=== PATIENT | male | born 1985 | race Caucasian/White ===

== ENCOUNTER → 2020-11-16 | Outpatient (CLI) | payer OTHER ==
[~2020-11-16] MED LIST: LISI20TA PO; OMEP20CA12 PO; OXYC500S2 PO
--- NOTE | 2020-11-16 10:56 | Diagnostic Imaging Report ---
EXAM: CT abdomen and pelvis without intravenous contrast. All CT scans use one or more of the following dose optimizing techniques: automated exposure control, MA and/or KvP adjustment based on patient size and exam type or iterative reconstruction. CLINICAL HISTORY: Right lower quadrant pain EXAM DATE/TIME: 11/16/2020 COMPARISON: None FINDINGS: Artifacts: None Lower thorax: Clear ABDOMEN: Liver: Normal Gallbladder and bile ducts: Absent Pancreas: Normal Spleen: Normal Adrenals: Mild enlarged Kidneys and ureters: No renal calculi. Renal outlines are smooth. No hydronephrosis. PELVIS: Bladder: Is empty Reproductive: A few calcifications within the prostate. The prostate is not enlarged. Appendix: Normal Bowel: There is edema along the ascending colon with mild mesenteric stranding suggesting some colitis of the ascending colon. ABDOMEN & PELVIS: Stomach and bowel: The stomach and small bowel are not distended. A lap band is present appearing in good position. Peritoneum: There is no free air or free fluid. Lymph nodes: There are a few lymph nodes along the ascending colon and terminal ileum consistent with inflammatory process. Vasculature: The aorta is not enlarged. Bones: No blastic or lytic bony changes. No evidence of pars defect. IMPRESSION: 1. Edema of the ascending colon with adjacent mesenteric stranding and the mesenteric lymph nodes all are consistent with colitis. No evidence of bowel obstruction. No free air. 2. LAP-BAND is present without evidence of complication. Dictated by: Dictated on workstation # [id number]
== END ==
LOC: RAD 10:15
PROVIDERS: ATTEND Family Medicine
DX: R10.31 Right lower quadrant pain (principal); R50.9 Fever, unspecified
CPT/HCPCS: 74176